=== PATIENT | male | born 1945 | race African-American/Black ===

== ENCOUNTER 2020-07-03 20:10 | Emergency (ER) | payer OTHER ==
[~2020-07-03 20:10] MED LIST: 8 HOUR650 MG PO; ASPIRIN CHEWABL81 MG PO; ASPIRIN EC81 M1 PO; AZITHROMYCIN 2250 MG PO; BAYER ADVANCED500 MG PO; CARBOPLATI10 MG/1 ML PO; CLARITIN10 MG PO; CRESTOR5 MG PO; FLOMAX 0.4 MG0.4 MG PO; FLOMAX0.4 MG PO; GABAPENTIN 100100 MG PO; ILOTYCIN1 GM OU; MOBIC7.5 MG PO; NITROQUIK SL0.4 MG SL; PERCOCET 10/321 EACH PO; PERCOCET 5-3251 EACH PO; PHENERGAN25 M1 PO; PRILOSEC20 MG PO; REGLAN10 MG PO; SENNA PLUS TAB1 EACH PO; SENNA8.6 MG PO; TAXOL PO; VENTOLIN HFA IN18 GM INH; VIBRAMYCIN100 MG PO; XANAX0.5 MG PO; ZOCOR40 MG PO; ZOFRAN4 MG PO; ZPAK PO
[2020-07-03 20:37] LABS: BASOPHIL 0.9 % (0-2); EOSINOPHIL 5.3 % (0-7); HCT 42.8 % (42.0-52.0); HGB 13.9 g/dl (13.2-18.0); LYMPHOCYTE 38.3 % (15-48); MCH 28.5 pg (25.0-31.0); MCHC 32.5 g/dL (32.0-36.0); MCV 87.7 fL (78.0-100.0); MONOCYTE 6.8 % (0-12); MPV 9.5 fL (6.0-9.5); NEUTROPHIL 48.5 % (41-80); NRBC 0; PLT 174 K/uL (150-400); RBC 4.88 M/uL (4.70-6.00); WBC 5.6 K/uL (4.0-10.5)
[2020-07-03 21:00] LABS: ALBUMIN 3.7 g/dL (3.4-5.0); BILIRUBIN - TOTAL 0.3 mg/dL (0.2-1.0); BUN/CREAT RATIO (CALC) 15.3 RATIO; CREATININE 0.98 mg/dL (0.67-1.17); GLOBULIN (CALCULATION) 3.3 g/dL; POTASSIUM 4.1 mmol/L (3.5-5.1)
[2020-07-03] MEDS ORDERED: DOXYCYCLINE MO100 MG PO (21:13)
[2020-07-03] MEDS ORDERED: DICLOFENAC SODI75 MG PO (21:13)
[2020-07-03] MEDS ORDERED: PEPCID AC20 MG PO (21:47)
== END 2020-07-03 22:18 | disposition home or self-care (01) ==
LOC: FER 20:10
PROVIDERS: Emergency Medicine
DX: R07.89 Other chest pain (principal); Z86.73 Personal history of transient ischemic attack (TIA), and cerebral infarction without residual deficits; Z85.46 Personal history of malignant neoplasm of prostate; Z85.118 Personal history of other malignant neoplasm of bronchus and lung; Z95.5 Presence of coronary angioplasty implant and graft; Z88.1 Allergy status to other antibiotic agents; Z88.0 Allergy status to penicillin; Z79.02 Long term (current) use of antithrombotics/antiplatelets; Z79.899 Other long term (current) drug therapy
CPT/HCPCS: 36415; 71045; 80053; 84484; 85025; 93005

== ENCOUNTER 2020-11-12 10:30 | Emergency (ER) | payer OTHER ==
[~2020-11-12 10:30] MED LIST changes: +DICLOFENAC SODI75 MG PO; +DOXYCYCLINE MO100 MG PO; +PEPCID AC20 MG PO
[2020-11-12 11:16] LABS: BASOPHIL 1.3 % (0-2); EOSINOPHIL 7.4 % (0-7); HGB 14.3 g/dl (13.2-18.0); MCH 27.7 pg (25.0-31.0); MCHC 32.5 g/dL (32.0-36.0); MCV 85.1 fL (78.0-100.0); MONOCYTE 6.8 % (0-12); MPV 9.5 fL (6.0-9.5); NEUTROPHIL 47.3 % (41-80); NRBC 0; PLT 192 K/uL (150-400); RBC 5.17 M/uL (4.70-6.00); WBC 6.1 K/uL (4.0-10.5)
[2020-11-12 11:31] LABS: ALBUMIN 3.6 g/dL (3.4-5.0); BILIRUBIN - TOTAL 0.5 mg/dL (0.2-1.0); CREATININE 1.12 mg/dL (0.67-1.17); GLOBULIN (CALCULATION) 4.2 g/dL; TOTAL PROTEIN 7.8 g/dL (6.4-8.2)
[2020-11-12 11:45] LABS: CKMB 1.6 ng/mL (0.0-3.6)
== END 2020-11-12 14:35 | disposition home or self-care (01) ==
LOC: FER 10:30
PROVIDERS: Emergency Medicine
DX: R07.9 Chest pain, unspecified (principal); I45.10 Unspecified right bundle-branch block; I25.2 Old myocardial infarction; Z86.73 Personal history of transient ischemic attack (TIA), and cerebral infarction without residual deficits; Z79.899 Other long term (current) drug therapy; Z85.118 Personal history of other malignant neoplasm of bronchus and lung; Z90.2 Acquired absence of lung [part of]; Z88.0 Allergy status to penicillin; Z88.1 Allergy status to other antibiotic agents; Z88.8 Allergy status to other drugs, medicaments and biological substances
CPT/HCPCS: 36415; 71046; 80053; 82553; 84484; 85025

== ENCOUNTER 2020-11-30 13:56 | Emergency (ER) | payer OTHER ==
[2020-11-30 14:44] LABS: EOSINOPHIL 5.9 % (0-7); HCT 41.1 % (42.0-52.0); HGB 13.3 g/dl (13.2-18.0); LYMPHOCYTE 31.5 % (15-48); MCH 27.7 pg (25.0-31.0); MCHC 32.4 g/dL (32.0-36.0); MCV 85.4 fL (78.0-100.0); MONOCYTE 6.2 % (0-12); MPV 9.6 fL (6.0-9.5); NEUTROPHIL 55.2 % (41-80); NRBC 0; PLT 183 K/uL (150-400); RBC 4.81 M/uL (4.70-6.00); RDW 13.2 % (11.5-14.0)
[2020-11-30 14:56] LABS: BUN/CREAT RATIO (CALC) 13.1 RATIO; CREATININE 1.07 mg/dL (0.67-1.17); POTASSIUM 4.1 mmol/L (3.5-5.1)
== END 2020-11-30 17:08 | disposition home or self-care (01) ==
LOC: FER 13:56
PROVIDERS: Nurse Practitioner Family
DX: R51.9 Headache, unspecified (principal); Z86.73 Personal history of transient ischemic attack (TIA), and cerebral infarction without residual deficits; Z88.0 Allergy status to penicillin; Z88.1 Allergy status to other antibiotic agents; Z91.041 Radiographic dye allergy status; Z88.5 Allergy status to narcotic agent
CPT/HCPCS: 36415; 70450; 80048; 85025; J1100

== ENCOUNTER 2021-07-27 06:07 | Emergency (ER) | payer OTHER ==
[2021-07-27 06:25] LABS: BASOPHIL 1.2 % (0-2); EOSINOPHIL 5.4 % (0-7); HCT 40.2 % (42.0-52.0); HGB 12.9 g/dl (13.2-18.0); LYMPHOCYTE 39.4 % (15-48); MCH 27.3 pg (25.0-31.0); MCHC 32.1 g/dL (32.0-36.0); MCV 85.2 fL (78.0-100.0); MONOCYTE 7.7 % (0-12); MPV 9.4 fL (6.0-9.5); NEUTROPHIL 46.1 % (41-80); NRBC 0; PLT 200 K/uL (150-400); RBC 4.72 M/uL (4.70-6.00); RDW 13.5 % (11.5-14.0); WBC 5.2 K/uL (4.0-10.5)
[2021-07-27 06:49] LABS: INR 1.08 (0.9-1.2); PROTHROMBIN TIME 13.4 SECONDS (11.8-13.4); PTT 28.7 SECONDS (24.4-34.7)
[2021-07-27 07:03] LABS: ALBUMIN 3.4 g/dL (3.4-5.0); BILIRUBIN - TOTAL 0.3 mg/dL (0.2-1.0); CREATININE 1.31 mg/dL (0.67-1.17); GLOBULIN (CALCULATION) 3.8 g/dL; POTASSIUM 3.9 mmol/L (3.5-5.1); TOTAL PROTEIN 7.2 g/dL (6.4-8.2)
[2021-07-27 07:23] LABS: CORONAVIRUS 2019 SARS-COV-2 NEGATIVE (NEGATIVE); INFLUENZA A NAA NEGATIVE (NEGATIVE)
[2021-07-27] MEDS ORDERED: VENTOLIN HFA IN18 GM INH (09:14)
[2021-07-27] MEDS ORDERED: PREDNISONE 20MG20 MG PO (09:14)
== END 2021-07-27 09:53 | disposition home or self-care (01) ==
LOC: FER 06:07
PROVIDERS: Emergency Medicine
DX: J43.9 Emphysema, unspecified (principal); C34.90 Malignant neoplasm of unspecified part of unspecified bronchus or lung; I25.10 Atherosclerotic heart disease of native coronary artery without angina pectoris; Z79.02 Long term (current) use of antithrombotics/antiplatelets; Z20.822 Contact with and (suspected) exposure to COVID-19
CPT/HCPCS: 36415; 71045; 71250; 80053; 83880; 84484; 85025; 85379; 85610; 85730; 93005; J3010; J7030; Q9967; U0002

== ENCOUNTER 2021-08-01 03:56 | Emergency (ER) | payer OTHER ==
[~2021-08-01 03:56] MED LIST changes: +PREDNISONE 20MG20 MG PO
[2021-08-01 05:01] LABS: BASOPHIL 0.4 % (0-2); EOSINOPHIL 0.5 % (0-7); HCT 40.4 % (42.0-52.0); HGB 12.9 g/dl (13.2-18.0); LYMPHOCYTE 28.9 % (15-48); MCH 27.3 pg (25.0-31.0); MCHC 31.9 g/dL (32.0-36.0); MCV 85.4 fL (78.0-100.0); MONOCYTE 6.5 % (0-12); MPV 9.6 fL (6.0-9.5); NEUTROPHIL 63.2 % (41-80); NRBC 0; PLT 223 K/uL (150-400); RBC 4.73 M/uL (4.70-6.00); RDW 13.9 % (11.5-14.0); WBC 8.1 K/uL (4.0-10.5)
[2021-08-01 05:18] LABS: BUN/CREAT RATIO (CALC) 15.3 RATIO; CREATININE 1.24 mg/dL (0.67-1.17); URIC ACID 5.2 mg/dL (3.5-7.2)
== END 2021-08-02 20:10 | disposition other institution (70) ==
LOC: FER 03:56
PROVIDERS: Internal Medicine
DX: I73.9 Peripheral vascular disease, unspecified (principal); Z88.0 Allergy status to penicillin; Z88.1 Allergy status to other antibiotic agents; Z88.5 Allergy status to narcotic agent; Z91.041 Radiographic dye allergy status; Z91.010 Allergy to peanuts; Z91.018 Allergy to other foods
CPT/HCPCS: 36415; 72131; 73620; 80048; 84550; 85025; J1170; J2405; J2930; J7512; Q9967

== ENCOUNTER 2021-10-29 16:27 | Emergency (ER) | payer OTHER ==
[2021-10-29 19:12] LABS: BASOPHIL 1.1 % (0-2); EOSINOPHIL 8.6 % (0-7); HCT 42.9 % (42.0-52.0); HGB 13.6 g/dl (13.2-18.0); LYMPHOCYTE 32.7 % (15-48); MCH 27.5 pg (25.0-31.0); MCHC 31.7 g/dL (32.0-36.0); MCV 86.8 fL (78.0-100.0); MONOCYTE 7.1 % (0-12); MPV 9.5 fL (6.0-9.5); NEUTROPHIL 50.3 % (41-80); NRBC 0; PLT 184 K/uL (150-400); RBC 4.94 M/uL (4.70-6.00); RDW 13.8 % (11.5-14.0); WBC 5.5 K/uL (4.0-10.5)
[2021-10-29 19:31] LABS: ALBUMIN 3.9 g/dL (3.4-5.0); BILIRUBIN - TOTAL 0.3 mg/dL (0.2-1.0); CREATININE 1.5 mg/dL (0.67-1.17); GLOBULIN (CALCULATION) 3.8 g/dL; POTASSIUM 4.2 mmol/L (3.5-5.1); TOTAL PROTEIN 7.7 g/dL (6.4-8.2)
== END 2021-10-29 20:53 | disposition home or self-care (01) ==
LOC: FER 16:27
PROVIDERS: Emergency Medicine
DX: R22.43 Localized swelling, mass and lump, lower limb, bilateral (principal); Z91.041 Radiographic dye allergy status
CPT/HCPCS: 36415; 71045; 80053; 83880; 84484; 85025; 93005